=== PATIENT | female | born 1950 | race Caucasian/White ===

== ENCOUNTER → 2019-04-03 | Outpatient (CLI) | payer MEDICARE, BC ==
--- NOTE | 2019-04-03 14:50 | RADIOLOGY REPORT (SQ) ---
EXAM DESCRIPTION: MRI RT LOWER JOINT WITHOUT COMPLETED DATE/TIME: 04/03/2019 2:07 pm REASON FOR STUDY: M25.561 PAIN IN RIGHT KNEE M25.561 PAIN IN RIGHT KNEE COMPARISON: None. TECHNIQUE: Rightknee images acquired and stored on PACS. Multiplanar images include fat sensitive s equences as T1, water sensitive sequences as FST2 or STIR, cartilage sensitive sequences as FSPD, and gradient echo sequences. LIMITATIONS: None. FINDINGS: JOINT AND BURSAE: No effusion. BONE CORTEX AND MARROW: No alteration of signal to suggest marrow replacement. No worrisome bone lesi ons. No occult fracture. ACL: Intermediate T2 signal within non taut appearing ligament. The proximal attachment is not well defined. PCL: Intermediate T2 signal within non taut ligament. Proximal and distal margins are intact. Appea fernando believed secondary to ACL injury with mild anterior drawer. MCL: Intact. No periligamentous edema or fluid. LCL: Intact. No periligamentous edema or fluid. MEDIAL MENISCUS: Increased T2 signal in the posterior horn abutting the articular surface in the hori zontal plane. LATERAL MENISCUS: Intact. MEDIAL COMPARTMENT: Relatively preserved cartilage. No large osteophytes or subchondral edema. LATERAL COMPARTMENT: Relatively preserved cartilage. No large osteophytes or subchondral edema. PATELLA: Thinning of the patellar cartilage. Mild subchondral cyst formation. Intact retinaculum. EXTENSOR MECHANISM: Intact. Quadriceps and patella tendons normal. SOFT TISSUES: Adjacent muscles and subcutaneous tissues normal. Normal flow void in popliteal artery and vein. OTHER: No other significant finding. IMPRESSION: 1. Suspect at least partial tear of the proximal ACL. Non taut appearance of the PCL believed to be secondary to ACL injury or from remote injury. 2. Horizontal tear posterior horn medial meniscus. TECHNICAL DOCUMENTATION: JOB ID: [id number] [employer]- All Rights Reserved Reading location - IP/workstation name: [email or web address]
== END ==
LOC: RAD 13:15
PROVIDERS: ATTEND Orthopaedic Surgery Sports Medicine
DX: S83.241A Other tear of medial meniscus, current injury, right knee, initial encounter (principal); X58.XXXA Exposure to other specified factors, initial encounter; M25.561 Pain in right knee